=== PATIENT | female | born 2000 ===

== ENCOUNTER 2022-03-19 20:26 | Emergency (ER) | payer BC ==
[~2022-03-19] VITALS: Ht 162.6 cm; Wt 64.0 kg
[2022-03-19 20:56] LABS: BASOPHILS % (AUTO) 0.4 % (0-1); EOSINOPHILS % (AUTO) 0 % (0-6); HEMATOCRIT 37.3 % (35.0-45.0); HEMOGLOBIN 12.8 g/dl (12.0-16.0); LYMPHOCYTES # (AUTO) 1.1 X10'3 (1.1-4.8); LYMPHOCYTES % (AUTO) 15.5 % (21-51); MEAN CORPUSCULAR HEMOGLOBIN 27.9 PG (27.0-31.0); MEAN CORPUSCULAR HGB CONC 34.3 g/dL (33.0-36.5); MEAN CORPUSCULAR VOLUME 81.4 FL (78-98); MEAN PLATELET VOLUME 7.8 FL (7.4-10.4); MONOCYTES # (AUTO) 1.1 X10'3 (0-0.9); MONOCYTES % (AUTO) 14.3 % (2-12); NEUTROPHILS # (AUTO) 5.1 X10'3 (1.8-7.7); NEUTROPHILS % (AUTO) 69.8 % (42-75); PLATELET COUNT 226 X10'3 (140-440); RED BLOOD COUNT 4.59 X10'6 (4.20-5.60); RED CELL DISTRIBUTION WIDTH 13.4 % (11.5-14.5); WHITE BLOOD COUNT 7.4 X10'3 (4.5-11.0)
[2022-03-19 21:08] LABS: ALANINE AMINOTRANSFERASE 16 U/L (12-78); ALBUMIN 3.3 G/DL (3.4-5.0); ALBUMIN/GLOBULIN RATIO 0.7 (1.1-1.5); ALKALINE PHOSPHATASE 56 IU/L (20-180); ANION GAP 9 (8-16); ASPARTATE AMINO TRANSFERASE 14 U/L (10-37); BILIRUBIN,TOTAL 0.6 MG/DL (0.1-1.0); BLOOD UREA NITROGEN 8 MG/DL (7-18); BUN/CREATININE RATIO 10.4 (6.6-38.0); CALCIUM 8.6 MG/DL (8.5-10.1); CHLORIDE 99 MMOL/L (99-107); CREATININE 0.77 MG/DL (0.40-0.90); GLUCOSE 128 MG/DL (70-104); SODIUM 134 MMOL/L (135-145); TOTAL CARBON DIOXIDE 26.3 MMOL/L (24-32); TOTAL PROTEIN 7.9 G/DL (6.4-8.2); eGFR > 90 ML/MIN
[2022-03-19 21:11] LABS: CLARITY,URINE CLEAR (Clear); COLOR,URINE YELLOW (Yellow); GLUCOSE, URINE NEGATIVE (Neg); KETONES,URINE NEGATIVE (Neg); LEUKOCYTE ESTERASE ,URINE LARGE (Neg); NITRITES, URINE POSITIVE (Neg); OCCULT BLOOD,URINE LARGE (Neg); PROTEIN,URINE 30 mg/dl (Neg)
[2022-03-19 21:12] LABS: UA COLLECTION TYPE CLN CATCH MIDSTREAM
[2022-03-19 21:18] LABS: BACTERIA,URINE 4+ /HPF (Neg); SQUAMOUS EPITHELIAL CELL,UR MODERATE /LPF (FEW); WBC,URINE TNTC /HPF (0-4)
[2022-03-19] MEDS ORDERED: cephalexin 500mg capsule PO ONE (23:00)
[2022-03-19 23:07] LABS: URINE HCG NEGATIVE (NEG)
[2022-03-19 23:39] VITALS: BP 104/59
[2022-03-19] MEDS ORDERED: CEPH-585 PO (23:41)
== END 2022-03-19 23:48 | disposition home or self-care (01) ==
LOC: ER 20:28
DX: N39.0 Urinary tract infection, site not specified (principal); Z20.822 Contact with and (suspected) exposure to COVID-19; Z86.2 Personal history of diseases of the blood and blood-forming organs and certain disorders involving the immune mechanism; Z79.2 Long term (current) use of antibiotics
CPT/HCPCS: 36415; 80053; 81001; 81025; 84443; 85025; 87635; 93005; 99284; C9803

== ENCOUNTER 2023-03-31 15:16 | Emergency (ER) | payer BC ==
[~2023-03-31] VITALS: Ht 162.6 cm; Wt 75.0 kg
[2023-03-31 15:39] VITALS: BP 117/78; PULSE 88; RESP 18; TEMP 97.8; O2SAT 99
[2023-03-31] MEDS ORDERED: CEPH-585 PO (17:04)
[2023-03-31] MEDS ORDERED: NAPR-56 PO (17:04)
[2023-03-31] MEDS ORDERED: SULF1TAB49 PO (17:04)
== END 2023-03-31 17:39 | disposition home or self-care (01) ==
LOC: ER 15:17
DX: L03.113 Cellulitis of right upper limb (principal)
CPT/HCPCS: 99283

== ENCOUNTER 2024-08-18 10:12 | Outpatient (CLI) | payer BC, OTHER ==
[2024-08-18] VITALS (21 sets, daily range): BP systolic 100–133; BP diastolic 64–81; PULSE 77–113
== END 2024-08-18 23:59 | disposition home or self-care (01) ==
LOC: CARD DIAG 10:12
PROVIDERS: ATTEND Internal Medicine Interventional Cardiology
DX: I95.1 Orthostatic hypotension (principal)
CPT/HCPCS: 93660